=== PATIENT | female | born 1960 | race Asian ===

== ENCOUNTER 2024-06-15 03:15 | Outpatient (CLI) | payer BC, SELFPAY | END 2024-06-15 03:16 | disposition home or self-care (01) | LOC: AMB 06-17 11:07 | PROVIDERS: Visit Provider Family Medicine | DX: R51.9 Headache, unspecified (principal) | CPT/HCPCS: A0425; A0427 ==

== ENCOUNTER 2024-06-15 03:28 | Emergency (ER) | payer BC, SELFPAY ==
[2024-06-15 03:46] VITALS: BP 152/99; PULSE 75; RESP 18; TEMP 36.2; O2SAT 98; BMI 27.1
--- NOTE | 2024-06-15 04:10 | ED_ITS ---
HPI - General Adult General Chief complaint: Headache/Migraine Stated complaint: Fall Time Seen by Provider: 06/15/24 03:59 History of Present Illness HPI narrative: pt here from [place] visiting her daughter who is at college here, she was walking outside yesterday at about 1000 and fell forward onto hands and knees, now has headache that woke her from sleep, she feels burning and stinging pain with throbbing and mild nausea, no vomiting 64-year-old woman presenting to the emergency department with concern of a headache. She describes a generalized headache a generally throbbing headache with some mild nausea. This may have started after a fall yesterday where she describes a trip and fall event falling forward catching herself on her hands and knees. She does not have any significant pain there either. Neck is a little sore. Has not medicated noting holistic approach and preferring to avoid allopathic type medications. There was no loss of consciousness with this fall. She did not hit her head. Does note a history of headaches with concern of tension relation. Just thought she should be evaluated for more significant findings/concern. Also notes significant stressors. Struggles with sleep. Related Data Home Medications ?Medication ?Instructions ?Recorded ?Confirmed No Known Home Medications 06/15/24 06/15/24 Allergies Allergy/AdvReac Type Severity Reaction Status Date / Time amoxicillin Allergy Verified 06/15/24 03:54 cephalexin (From Keflex) Allergy Verified 06/15/24 03:54 Cephalosporins Allergy Verified 06/15/24 03:54 Penicillins Allergy Verified 06/15/24 03:54 Sulfa (Sulfonamide Allergy Verified 06/15/24 03:54 Antibiotics) acetaminophen (From Percocet) AdvReac Anxiety Verified 06/15/24 03:54 hydrocodone (From Vicodin) AdvReac Anxiety Verified 06/15/24 03:54 nalbuphine (From Nubain) AdvReac Anxiety Verified 06/15/24 03:54 oxycodone (From Percocet) AdvReac Anxiety Verified 06/15/24 03:54 Review of Systems Status of ROS: Reports: 6 or more systems reviewed and unremarkable except as noted in History and below PFSH PFSH Social History Smoking Status: Never smoker Do you use any of these nicotine containing products: None How often do you have a drink containing alcohol: never How often do you have six or more drinks on one occasion: Never AUDIT-C Alcohol total score: 0 Non-prescribed substance use: denies use service: No Exam Narrative: Exam Narrative: Pleasantly verbose and tangential. Speaking fluidly and easily. Head is atraumatic. Neck is supple nontender other than some paracervical and trapezial muscle tension and discomfort. Back nontender. Moving all extremities without difficulty without evidence of injury. Heart in regular rate and rhythm. Pupils are equal and briskly reactive. Extraocular movements are full. There is no nystagmus. Cranial nerves 2-12 intact. GCS 15. Normal [id number]. Normal toe heel. Negative Romberg. Const: Vital Signs, click to edit/add: Vital Signs - 24 hr 06/15/24 03:46 Temperature 97.1 F L Pulse Rate [Right Pulse Oximeter] 75 Respiratory Rate 18 Blood Pressure [Ri ght Upper Arm] 152/99 H Pulse Oximetry 98 Oxygen Delivery Me thod Room Air Documenting provider has reviewed patient's vital signs: yes Course Vital Signs Vital signs: Initial Vital Signs Temperature 97.1 F L 06/15/24 03:46 Temperature Source Temporal Artery Scan 06/15/24 03:46 Pulse Rate 75 06/15/24 03:46 Respiratory Rate 18 06/15/24 03:46 Blood Pressure 152/99 H 06/15/24 03:46 Blood Pressure Mean 116 H 06/15/24 03:46 Blood Pressure Position Sitting 06/15/24 03:46 Pulse Oximetry 98 06/15/24 03:46 Oxygen Delivery Method Room Air 06/15/24 03:46 Vital Signs Temperature 97.1 F L 06/15/24 03:46 Pulse Rate 75 06/15/24 03:46 Respiratory Rate 18 06/15/24 03:46 Blood Pressure 152/99 H 06/15/24 03:46 Pulse Oximetry 98 06/15/24 03:46 Oxygen Delivery Method Room Air 06/15/24 03:46 Temperature 97.1 F L 06/15/24 03:46 Pulse Rate 75 06/15/24 03:46 Respiratory Rate 18 06/15/24 03:46 Blood Pressure 152/99 H 06/15/24 03:46 Pulse Oximetry 98 06/15/24 03:46 Oxygen Delivery Method Room Air 06/15/24 03:46 Medical Decision Making MDM Narrative Medical decision making narrative: I do not think requires further investigation as to the origin of this headache at this time. I doubt head bleed. Might have some concussive symptoms. Appears to have some tension component to this headache. Did discuss with family, daughter specifically who accompanies her here that she is acting normally. Proper sleep I think would be 1st course of action as well as some stretching. Possible might develop some concussive symptoms She does not want any treatment for this headache otherwise. See patient discharge plan for further discussion Stay well-hydrated. Daily gentle stretching. Get quality and regular sleep. Normally I would also recommend an Excedrin-type medication initially. Be seen for uncontrolled severe headache, new and focal weakness, double vision, repeated vomiting. Signs or symptoms of a concussion might be nausea or headache upon exertion which can also be an indication to back off that level of activity and reassess in a week.? Concussion can also be represented by smoldering nausea or smoldering headache, difficulty with concentration, mood lability, general somnolence, sense of persistent fog or dizziness/lightheadedness.? If these symptoms are becoming apparent and continuing beyond 7-10 days, be re-evaluated for further recommendations. Discharge Plan Discharge Clinical Impression: Tension headache Patient Disposition: Home w/ Parent or Adult Condition: Stable Additional Instructions: Stay well-hydrated. Daily gentle stretching. Get quality and regular sleep. Normally I would also recommend an Excedrin-type medication initially. Be seen for uncontrolled severe headache, new and focal weakness, double vision, repeated vomiting. Signs or symptoms of a concussion might be nausea or headache upon exertion which can also be an indication to back off that level of activity and reassess in a week.? Concussion can also be represented by smoldering nausea or smoldering headache, difficulty with concentration, mood lability, general somnolence, sense of persistent fog or dizziness/lightheadedness.? If these symptoms are becoming apparent and continuing beyond 7-10 days, be re-evaluated for further recommendations. Activity Level: No Restrictions Discharge Diet: Regular Prescriptions: No Action No Known Home Medications Stand Alone Forms: [facility] Info Instructions
--- OUTSIDE RECORDS SUMMARY | 2024-06-15 04:56 | XMS_ITS | Continuity of Care Document ---
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 12/07/2023 18:16:10 PDT - - [facility] 12/14/2023 20:11:30 PDT - - [facility] Office or other outpatient consultation for a new or established patient, 20 mins or more, which requires a medically appropriate history and/or examination and straightforward medical decision making. [facility] 03/10/2023 23:42:37 PDT 03/11/2023 07:59:00 PDT - [facility] - [facility] 11/30/2023 18:15:37 PDT - - [facility] 11/15/2023 17:12:20 PDT - - [facility] - Unknown 10/30/2023 22:02:29 PDT - - [facility] Office or other outpatient consultation for a new or established patient, 20 mins or more, which requires a medically appropriate history and/or examination and straightforward medical decision making. Unknown 08/23/2023 16:50:13 PDT - - [facility] Office or other outpatient consultation for a new or established patient, 20 mins or more, which requires a medically appropriate history and/or examination and straightforward medical decision making. Unknown 01/25/2023 23:55:30 PDT - - [facility] Office or other outpatient consultation for a new or established patient, 20 mins or more, which requires a medically appropriate history and/or examination and straightforward medical decision making. Unknown 01/04/2023 19:27:02 PDT 01/05/2023 06:59:00 PDT - [facility] Office or other outpatient consultation for a new or established patient, 20 mins or more, which requires a medically appropriate history and/or examination and straightforward medical decision making. Unknown 01/04/2023 17:54:57 PDT - [facility] Problem List Start Date End Date Condition Code Condition Name Condition Text Problem Category Problem Text Status Informant - - 964 Initial Assessment Initial Assessment - [facility] - - M25.512 Pain in left shoulder Pain in left shoulder - [facility] - - M54.12 Radiculopathy, cervical region Radiculopathy , cervical region - [facility] - - M54.2 Cervicalgia Cervicalgia - [facility] - - G44.309 Post-traumatic headache, unspecified, not intractable Post-traumati c headache, unspecified, not intractable - [facility] - - R07.89 Other chest pain Other chest pain - [facility] - - M85.80 Other specified disorders of bone density and structure, unspecified site Other specified disorders of bone density and structure, unspecified site - [facility] - - Z13.820 Encounter for screening for osteoporosis Encounter for screening for osteoporosis - [facility] - - F32.A Depression, unspecified Depression, unspecified - [facility] - - E78.00 Pure hypercholester olemia, unspecified Pure hypercholeste rolemia, unspecified - [facility] - - R73.03 Prediabetes Prediabetes - [facility] - - [id number] Follow-up Follow-up - [facility] - - G89.29 Other chronic pain Other chronic pain - [facility] - - M25.571 Pain in right ankle and joints of right foot Pain in right ankle and joints of right foot - [facility] - - Z23 Encounter for immunization Encounter for immunization - [facility] - - Z12.4 Encounter for screening for malignant neoplasm of cervix [facility] - - Z00.00 Encounter for general adult medical examination without abnormal findings Encounter for general adult medical examination without abnormal findings [facility] - - Z12.11 Encounter for screening for malignant neoplasm of colon Encounter for screening [facility] malignant neoplasm [facility] colon [facility] - - Z12.31 Encounter for screening mammogram for malignant neoplasm of breast Encounter for screening [facility]oplasm [facility] Allergies, adverse reactions, alerts Code Description Status Start Date Substance Reaction Severity Criticality Informant - BENZONATATE Active (qualif ier value) 2009 08:00: 00 PDT BENZONATATE Itching - - [facility] - PENICILLINS Active (qualif ier value) 2003 07:00: 00 PDT PENICILLINS Hives - - [facility] - HYDROCODONE Active (qualif ier value) 2004 07:00: 00 PDT HYDROCODONE Itching Moderate (severity modifier) (qualifie r value) - [facility] - NALBUPHINE Active (qualif ier value) 2004 07:00: 00 PDT NALBUPHINE Itching Moderate (severity modifier) (qualifie r value) - [facility] - MOXIFLOXACIN Active (qualif ier value) 2006 07:00: 00 PDT MOXIFLOXACIN Hives Moderate (severity modifier) (qualifie r value) - [facility] - CEPHALEXIN Active (qualif ier value) 2004 07:00: 00 PDT CEPHALEXIN Hives Moderate (severity modifier) (qualifie r value) - [facility] - SULFA ANTIBIOTICS Active (qualif ier value) 2004 07:00: 00 PDT SULFA ANTIBIOTICS Hives Moderate (severity modifier) (qualifie r value) - [facility]
== END 2024-06-15 05:04 | disposition home or self-care (01) ==
PROVIDERS: Emergency Provider Family Medicine
DX: G44.209 Tension-type headache, unspecified, not intractable (principal)
CPT/HCPCS: 99282; 99283; 99284